=== PATIENT | female | born 1990 | race Asian ===

== ENCOUNTER 2020-01-03 11:40 | Emergency (ER) | payer OTHER ==
[~2020-01-03] VITALS: Ht 162.6 cm; Wt 56.7 kg
[2020-01-03 11:47] VITALS: BP 118/88
[2020-01-03 12:07] VITALS: BP 118/88
[2020-01-04 06:26] LABS: HEPATITIS B SURFACE ANTIGEN Negative (Negative)
== END 2020-01-03 12:08 | disposition home or self-care (01) ==
LOC: MED 11:40
DX: Z77.21 Contact with and (suspected) exposure to potentially hazardous body fluids (principal)
CPT/HCPCS: 36415; 86592; 86702; 86803; 87340; 99283